=== PATIENT | male | born 1990 | race Two or more races ===

== ENCOUNTER 2016-08-05 13:28 | Emergency (ER) | payer OTHER ==
[~2016-08-05] VITALS: Ht 170.2 cm; Wt 80.4 kg
[2016-08-05 13:38] VITALS: BP 140/81
== END 2016-08-05 16:30 | disposition left against medical advice (07) ==
LOC: ER 13:40
DX: M54.2 Cervicalgia (principal); Z53.21 Procedure and treatment not carried out due to patient leaving prior to being seen by health care provider